=== PATIENT | male | born 1950 | race Caucasian/White ===

== ENCOUNTER 2017-05-26 09:43 | Emergency (ER) | payer MEDICARE, OTHER ==
[2017-05-26] MEDS ORDERED: CLINDAMYCIN 900 MG/50 ML 50 ML IV ONE ×2 (10:05→10:24)
--- NOTE | 2017-05-26 10:07 | ED Physician Documentation ---
PD HPI ANIMAL BITE - Stated complaint Stated Complaint: R WRIST SWELLING - Chief complaint Chief Complaint: Wound - History obtained from History obtained from: Patient - History of Present Illness Location of injury(ies): RUE Details of the event: Cat Timing - onset: How many days ago (2) Associated symptoms: Swelling, Discolored Recently seen: Clinic (Yesterday.) - Treatment [employer]IL [employer] Treatment prior to arrival: Augmentin. - Additional information Additional information: The patient is a 66-year-old male who presents with redness and swelling of his right forearm. 2 days ago a stray cat was in his house and when he was trying to remove the cat it scratched him in the forearm. He was seen by his primary physician yesterday and was prescribed Augmentin. He presents now because of increased swelling and redness, with lymphangitic streaking. He denies fever. He is uncertain when his last tetanus booster was administered. He is right- hand dominant. Review of Systems Constitutional: denies: Fever, Sweats Nose: denies: Congestion Throat: denies: Sore throat Cardiac: denies: Chest pain / pressure Respiratory: denies: Dyspnea, Cough GI: denies: Abdominal Pain, Nausea, Vomiting : denies: Dysuria Skin: reports: Bite / sting. denies: Rash Musculoskeletal: reports: Extremity pain (RUE) Neurologic: denies: Focal weakness, Numbness, Headache PD PAST MEDICAL HISTORY - Present Medications Home Medications: Ambulatory Orders Medication Instructions Recorded Confirmed Amox/Clav 875/125 [Augmentin 1 tab PO BID 05/26/17 05/26/17 875/125] - Allergies Allergies/Adverse Reactions: Allergies Allergy/AdvReac Type Severity Reaction Status Date / Time Sulfa (Sulfonamide Allergy Unknown Verified 05/26/17 09:55 Antibiotics) PD ED PE NORMAL - Vitals Vital signs reviewed: Yes (hypertensive) - General General: Alert and oriented X 3, Well developed/nourished - HEENT HEENT: Atraumatic, Pharynx benign - Neck Neck: No adenopathy, No JVD - Cardiac Cardiac: RRR, No murmur - Respiratory Respiratory: No respiratory distress, Clear bilaterally - Abdomen Abdomen: Soft, Non tender - Back Back: No CVA TTP - Derm Derm: No rash - Extremities Extremities: Other (There is a 2.5 cm laceration on the dorsum of the right distal forearm, consistent with cat scratch. There is erythema and soft tissue swelling over the dorsum of the right hand and distal forearm. There is slight warmth to palpation, and lymphangitic streaking extending just proximal to the elbow. There is no axillary adenopathy detected. Distal neurovascular is intact.) - Neuro Neuro: Alert and oriented X 3, No motor deficit, No sensory deficit Results - Vitals Vitals: Oxygen O2 Source Room air PD MEDICAL DECISION MAKING - ED course Complexity details: re-evaluated patient, considered differential, d/w patient ED course: The patient's presentation is significant for cellulitis of his right forearm caused by cat scratch. There is no evidence of abscess. Treatmen in the emergency department included administration clindamycin 900 mg IV, as well as administration of tetanus booster. I do not think his clinical presentation warrants hospitalization at this time unless his symptoms become worse on oral antibiotics. I discussed with him the importance of continuing Augmentin as previously prescribed by his primary physician, as well as potentially worrisome signs or symptoms that should prompt reevaluation in the emergency department. Departure - Departure Disposition: 01 Home, Self Care Clinical Impression: Cellulitis of right arm Cat scratch of forearm Qualifiers: Encounter type: initial encounter Laterality: right Qualified Code(s): S50.811A - Abrasion of right forearm, initial encounter Condition: Stable Instructions: ED Infec Skin Cellulitis Follow-Up: Maximiliano Knapp MD [Primary Care Provider] - Comments: Keep your right arm elevated above the level of your heart. Take amoxicillin/clavulanic acid as prescribed by your primary physician. You can use Tylenol or ibuprofen if needed for discomfort. Return to the emergency department if you develop increasing redness, swelling, fever with shaking chills, or otherwise worsening symptoms. Discharge Date/Time: 05/26/17 11:49
[2017-05-26] MEDS ORDERED: TETANUS/DIPHTHERIA/PERTUSSIS 0.5 ML SYRINGE IM ONE ×2 (10:09→10:24)
[2017-05-26 11:50] VITALS: BP 147/80
== END 2017-05-26 11:49 | disposition home or self-care (01) ==
LOC: ED 09:43
DX: S50.811A Abrasion of right forearm, initial encounter (principal); L03.113 Cellulitis of right upper limb; W55.03XA Scratched by cat, initial encounter; Y92.019 Unspecified place in single-family (private) house as the place of occurrence of the external cause; Z23 Encounter for immunization
CPT/HCPCS: 90471; 96365; 99283

== ENCOUNTER 2021-04-13 09:07 | Emergency (ER) | payer MEDICARE, OTHER ==
--- NOTE | 2021-04-13 10:22 | XRAY Report ---
PROCEDURE: Hand 3 View RT INDICATIONS: 5th digit PIP dislocation TECHNIQUE: 3 views of the hand(s) acquired. COMPARISON: None. FINDINGS: BONES: No acute, displaced fracture or dislocation. The carpal bones are normally aligned. SOFT TISSUES: No acute abnormality. IMPRESSION: 1.No acute osseous abnormality. Reviewed by: Farhan Arcos MD on 04/13/2021 10:21 AM PDT Approved by: Farhan Arcos MD on 04/13/2021 10:21 AM PDT Station ID: [id number]
--- NOTE | 2021-04-13 10:23 | ED Physician Documentation ---
PD HPI UPPER EXT INJURY - Stated complaint Stated Complaint: RT PINKY INJURY - Chief complaint Chief Complaint: Ext Problem - History obtained from History obtained from: Patient - History of Present Illness Location: Right, Finger (5th) Type of injury: Fall Where injury occurred: Home Timing - onset: Today Timing - duration: Hours Timing - details: Abrupt onset, Still present Improved by: Rest, Immobilization Worsened by: Moving, Palpating Associated symptoms: No: Weakness, Numbness, Tingling, Swelling Contributing factors: No: Anticoagulated Similar symptoms before: Has not had sx before Recently seen: Not recently seen - Additonal information Additional information: Previously well 70-year-old male was had a fall in his home and when he did he fell onto his outstretched right hand and twisted his right 5th finger laterally. He states that the finger was pointing off. He states this was at the PIP joint. He has no significant pain associated now has some mild swelling. Review of Systems Constitutional: denies: Fever Ears: denies: Ear pain Throat: denies: Sore throat Respiratory: denies: Cough PD PAST MEDICAL HISTORY - Present Medications Home Medications: Ambulatory Orders Medication Instructions Recorded Confirmed Amox/Clav 875/125 [Augmentin 1 tab PO BID 05/26/17 05/26/17 875/125] - Allergies Allergies/Adverse Reactions: Allergies Allergy/AdvReac Type Severity Reaction Status Date / Time Sulfa (Sulfonamide Allergy Unknown Verified 04/13/21 09:14 Antibiotics) PD ED PE NORMAL - Vitals Vital signs reviewed: Yes (hypertensive) - General General: Alert and oriented X 3, No acute distress, Well developed/nourished - HEENT HEENT: Atraumatic, PERRL, EOMI - Respiratory Respiratory: No respiratory distress - Derm Derm: Normal color, Warm and dry, No rash - Extremities Extremities: No deformity, No edema, Other (lateral subluxation of the 5th digit with pain over the PIP joint(R). Distal n/v intact. all joints with normal ROM. ) - Neuro Neuro: dry house wheeler 2-12 intact, No motor deficit, No sensory deficit, Normal speech Eye Opening: Spontaneous Motor: Obeys Commands Verbal: Oriented GCS Score: 15 - Psych Psych: Normal mood, Normal affect Results - Vitals Vitals: Vital Signs - 24 hr 04/13/21 09:12 Temperature 36.2 C L Heart Rate 69 Respiratory 18 Rate Blood Pressure 172/117 H O2 Saturation 93 Oxygen O2 Source Room air - Rads (name of study) fingers Radiology: Prelim report reviewed (Impression: 1. No acute osseous abnormality.), EMP read indepedently, See rad report Procedures - Splint (location) right hand Splint applied by: Tech Type of splint: Fiberglass, Ulnar gutter Other: Patient tolerated well, No complications, Neurovascular intact, Good alignment PD MEDICAL DECISION MAKING - ED course Complexity details: reviewed results, re-evaluated patient, considered differential, d/w patient ED course: 70-year-old male historically has dislocated his right 5th digit at the PIP joint it is spontaneously been reduced and there is no evidence of fracture on plain film. He is placed into an ulnar gutter splint and referred back to his primary. Departure - Departure Disposition: 01 Home, Self Care Clinical Impression: Dislocation of PIP joint of finger Qualifiers: Encounter type: initial encounter Qualified Code(s): S63.289A - Dislocation of proximal interphalangeal joint of unspecified finger, initial encounter Condition: Stable Instructions: ED Dislocation Finger Redu Follow-Up: Maximiliano Knapp MD [Primary Care Provider] -
[2021-04-13 10:40] VITALS: BP 168/86
== END 2021-04-13 10:41 | disposition home or self-care (01) ==
LOC: ED 09:07
DX: S63.286A Dislocation of proximal interphalangeal joint of right little finger, initial encounter (principal); W19.XXXA Unspecified fall, initial encounter; Y92.009 Unspecified place in unspecified non-institutional (private) residence as the place of occurrence of the external cause
CPT/HCPCS: 99282

== ENCOUNTER 2021-06-24 15:14 | Inpatient (IN) | payer MEDICARE, OTHER ==
--- NOTE | 2021-06-24 15:32 | ED Physician Documentation ---
PD HPI LOWER EXT INJURY - Stated complaint Stated Complaint: GLF - Chief complaint Chief Complaint: Trauma Ext - History obtained from History obtained from: Patient, EMS - History of Present Illness PD HPI LOW EXT INJURY LOCATION: Right, Hip - Additional information Additional information: 70-year-old gentleman with history of hypertension slipped on the ice while he was getting [employer] takeout And landed on his right hip where he has pain but declines pain medication. No other injuries. He is not able to walk or bear weight. Review of Systems Ten Systems: 10 systems reviewed and negative Constitutional: reports: Reviewed and negative Cardiac: reports: Reviewed and negative Respiratory: reports: Reviewed and negative PD PAST MEDICAL HISTORY - Present Medications Home Medications: Ambulatory Orders Medication Instructions Recorded Confirmed Amox/Clav 875/125 [Augmentin 1 tab PO BID 05/26/17 05/26/17 875/125] - Allergies Allergies/Adverse Reactions: Allergies Allergy/AdvReac Type Severity Reaction Status Date / Time Sulfa (Sulfonamide Allergy Unknown Verified 06/24/21 15:22 Antibiotics) PD ED PE NORMAL - Vitals Vital signs reviewed: Yes - General General: Alert and oriented X 3, No acute distress - HEENT HEENT: PERRL, EOMI - Neck Neck: Supple, no meningeal sign, No bony TTP - Cardiac Cardiac: RRR, No murmur - Respiratory Respiratory: No respiratory distress, Clear bilaterally - Abdomen Abdomen: Normal bowel sounds, Soft, Non tender - Back Back: No CVA TTP, No spinal TTP - Derm Derm: Normal color, Warm and dry - Extremities Extremities: Other (The right leg is shortened and externally rotated and he has severe pain with internal or external rotation of the hip.) - Neuro Neuro: Alert and oriented X 3, Normal speech Results - Vitals Vitals: Vital Signs - 24 hr 06/24/21 15:22 Temperature 36.7 C Heart Rate 58 L Respiratory 18 Rate Blood Pressure 174/88 H O2 Saturation 92 Oxygen O2 Source Room air - Labs Labs: Laboratory Tests 06/24/21 06/24/21 06/24/21 15:39 15:39 15:39 WBC 8.0 RBC 5.09 Hgb 15.5 Hct 45.6 MCV 89.6 MCH 30.5 MCHC 34.0 RDW 12.5 Plt Count 250 MPV 11.4 Neut # (Auto) 5.8 Lymph # (Auto) 1.1 L Geary # (Auto) 0.8 Eos # (Auto) 0.3 Baso # (Auto) 0.0 Absolute Nucleated RBC 0.00 Nucleated RBC % 0.0 PT 12.4 INR 1.1 Sodium 141 Potassium 3.7 Chloride 105 Carbon Dioxide 25 Anion Gap 11.0 BUN 16 Creatinine 1.1 Estimated GFR (MDRD) 66 L Glucose 130 H Calcium 9.4 PD MEDICAL DECISION MAKING - ED course ED course: This 70-year-old gentleman had a fall onto his right hip with an isolated right hip injury and is found to have a right-sided intertrochanteric fracture. I discussed the case by phone with Dr. Ace who is not on-call, but graciously agrees to see the patient and likely fix him tomorrow. Spoke with Dr. Perez for admission at 4:20 PM. Departure - Departure Disposition: 66 [facility] DC/Xfer Clinical Impression: Fracture, intertrochanteric, right femur Condition: Fair
[2021-06-24 15:48] LABS: BASOPHILS % (AUTO) 0.1 %; EOSINOPHILS # (AUTO) 0.3 10^3/uL (0.0-0.7); EOSINOPHILS % (AUTO) 3.1 %; HCT - HEMATOCRIT 45.6 % (42.0-52.0); HGB - HEMOGLOBIN 15.5 g/dL (14.0-18.0); LYMPHOCYTES # (AUTO) 1.1 10^3/uL (1.5-3.5); LYMPHOCYTES % (AUTO) 14.2 %; MEAN CORPUSCULAR HEMOGLOBIN 30.5 pg (27.0-31.0); MEAN CORPUSCULAR VOLUME 89.6 fL (80.0-94.0); MEAN PLATELET VOLUME 11.4 fL (7.4-11.4); MONOCYTES # (AUTO) 0.8 10^3/uL (0.0-1.0); MONOCYTES % (AUTO) 9.5 %; NEUTROPHILS # (AUTO) 5.8 10^3/uL (1.5-6.6); NEUTROPHILS % (AUTO) 72.7 %; PLT - PLATELET COUNT 250 10^3/uL (130-450); RED BLOOD COUNT 5.09 10^6/uL (4.70-6.10); RED CELL DISTRIBUTION WIDTH 12.5 % (12.0-15.0)
[2021-06-24 15:53] LABS: INR 1.1 (0.8-1.2); PT - PROTHROMBIN TIME 12.4 secs (9.9-12.6)
[2021-06-24 15:58] LABS: CALCIUM 9.4 mg/dL (8.5-10.3); CREATININE 1.1 mg/dL (0.6-1.2); POTASSIUM 3.7 mmol/L (3.5-5.0)
--- NOTE | 2021-06-24 16:10 | XRAY Report ---
PROCEDURE: Hip w/Pelvis 2-3V RT INDICATIONS: hip inj TECHNIQUE: AP pelvis with lateral view(s) of the right hip(s). COMPARISON: None. FINDINGS: Bones: There is a comminuted right intertrochanteric hip fracture. Both hips have mild degenerative c hanges. Pelvic ring appears intact. No suspicious bony lesions. Soft tissues: The visualized bowel gas pattern is normal. No suspicious soft tissue calcifications. IMPRESSION: Comminuted right intertrochanteric hip fracture. Reviewed by: West Lowe on 06/24/2021 4:09 PM PST Approved by: West Lowe on 06/24/2021 4:09 PM PST Station ID: [id number]
[2021-06-24] MEDS ORDERED: ACETAMINOPHEN 325 MG TABLET PO PRN (16:21)
[2021-06-24] MEDS ORDERED: SODIUM CHLORIDE FLUSH 0.9% 10 ML SYRINGE IVP PRN (16:21)
[2021-06-24] MEDS ORDERED: oxyCODONE 5 MG TABLET PO PRN (16:21)
[2021-06-24] MEDS ORDERED: ONDANSETRON 4 MG/2 ML VIAL IVP PRN (16:21)
--- NOTE | 2021-06-24 16:25 | XRAY Report ---
PROCEDURE: Chest 1 View X-Ray INDICATIONS: hip frx, preop TECHNIQUE: One view of the chest was acquired. COMPARISON: None FINDINGS: Surgical changes and devices: None. Lungs and pleura: No pleural effusions or pneumothorax. Lungs are clear. Mediastinum: Mediastinal contours appear normal. Heart size is normal. Bones and chest wall: No suspicious bony lesions. Overlying soft tissues appear unremarkable. IMPRESSION: Chest without acute cardiopulmonary abnormalities. Reviewed by: Edwin Huang MD on 06/24/2021 4:24 PM [facility] Approved by: Edwin Huang MD on 06/24/2021 4:24 PM [facility] Station ID: [id number]
[2021-06-24] MEDS ORDERED: hydrALAZINE INJ 20 MG/ML VIAL IVP PRN (16:28)
--- NOTE | 2021-06-24 16:33 | HISTORY & PHYSICAL EXAMINATION ---
Chief Complaint - Chief Complaint Chief Complaint: fall and right hip pain History of Present Illness - Admitted From Admitted From:: medical floor - History Obtained [facility] History obtained from: pt Exam Limitations: no - History of Present Illness HPI Comment/Other: This is a 70-year-old gentleman with a medical history of hypertension who complain of right hip pain after he fall [place]. he report he slipped on the ice while he went to a local [employer] restaurant. pt denies loss of consciousness or other injuries. he report landed on his right hip then he became severe pain at right hip. He report he can not standup or bear any weight after the fall. But Pt declines to have pain medication in ER. Xray show pt has comminuted right intertrochanteic hip fracture. CXR was unremarkable for acute process. pt denies cardiac history. he denies chest pain, shortness of breath. lab test show unremarkable. in ER, Patient is afebrile and slightly elevated blood pressure otherwise pt is hemodynamic stable. ER already consulted orthopedic surgeon. Discussed care goal with the patient, pt hope to have full code. History - Family & Social History Family History: Mother: , Father: Family History Comment/Other: Patient report his father from stroke at age 91. His mother from rare blood disease when she was age 23. Social History Notes: Patient reported she quit cigarette smoking at 2001, she report she drinks alcohol almost every night but he denies any alcohol withdrawal Meds/Allgy - Home Medications Home Medications: Ambulatory Orders Medication Instructions Recorded Confirmed Amox/Clav 875/125 [Augmentin 1 tab PO BID 05/26/17 05/26/17 875/125] - Allergies Allergies/Adverse Reactions: Allergies Allergy/AdvReac Type Severity Reaction Status Date / Time Sulfa (Sulfonamide Allergy Unknown Verified 06/24/21 15:22 Antibiotics) Review of Systems - Constitutional Constitutional: denies: Fever, Chills - Cardiovascular Cariovascular: denies: Palpitations, Chest pain, Syncope, Exertional dyspnea, Decr. exercise tolerance - Respiratory Respiratory: denies: Cough, SOB at rest, SOB with exertion - Gastrointestinal Gastrointestinal: denies: Abdominal pain, Nausea, Vomiting - Genitourinary Genitourinary: denies: Dysuria - Musculoskeletal Musculoskeletal: denies: Muscle pain, Joint swelling - Neurological Neurological: denies: General weakness, Focal weakness, Headache, Dizziness, Numbness, Abnormal gait, Seizures, Incoordination, Slurred speech Exam - Vital Signs Vital Signs: Vital Signs x48h Temp Pulse Resp BP Pulse Ox 06/24/21 15:22 36.7 C 58 L 18 174/88 H 92 - Physical Exam General Appearance: positive: No acute distress, Alert. negative: Lethargic Eyes Bilateral: positive: Normal inspection, No lid inflammation ENT: positive: ENT inspection nml, No signs of dehydration. negative: Purulent nasal drainage Neck: positive: Nml inspection, Trachea midline. negative: Tracheal deviation Respiratory: positive: Chest non-tender, No respiratory distress, Breath sounds nml Cardiovascular: positive: Regular rate & rhythm. negative: Tachycardia, Bradycardia, Systolic murmur Peripheral Pulses: positive: 2+ Abdomen: positive: Non-tender, Nml bowel sounds, No distention. negative: Tenderness Back: positive: Nml inspection Skin: positive: Color nml, Warm, Dry. negative: Cyanosis Extremities: positive: Non-tender, Nml appearance Neurologic/Psychiatric: positive: Oriented x3, Sensation nml, Mood/affect nml. negative: Weakness, Sensory loss, Facial droop, Slurred/abnml speech, Depressed mood/affect Conclusion/Plan - Problem List (1) Fracture, intertrochanteric, right femur Conclusion/Plan: Patient had a mechanical fall, patient denies loss conscious, x-ray show patient had a right hip fracture. Orthopedic surgeon was consulted, plan to have surgery on tomorrow. NPO after midnight, pain control. (2) Encounter for preoperative assessment for noncoronary cardiac surgery Conclusion/Plan: Patient denies any cardiac history, patient's lung sound is clear, and heart sounds without Murmur and Regular rhythm. Revised cardiac risk index Reji criteria estimated risk of adverse outcome with non-cardiac surgery reveal low risk. Estimated rate of myocardial infarction, pulmonary edema, ventricular fibrillation, cardiac arrest, or complete heart block show 0.4%. (3) HTN (hypertension) Conclusion/Plan: Amlodipine in his home meds we will resume, we will add hydralazine as needed - Lab Results Fish Bones: 06/24/21 15:39 06/24/21 15:39 Core Measures - Anticipated LOS I expect patient to be DC'd or transferred within 96 hours.: Yes - DVT/VTE - Prophylaxis VTE/DVT Device ordered at admit?: Yes VTE/DVT Prophylaxis med ordered at admit?: Yes
--- NOTE | 2021-06-24 18:05 | CONSULTATION NOTE ---
Referring Provider Name of Referring Provider:: Dr. Gabriel, Scottie An, HOME VISITS NURSE Consult Date: 06/24/21 Chief Complaint - Chief Complaint Chief Complaint: pain right uppper thigh and hip History of Present Illness - Admitted From Admitted From:: Emergency department - History Obtained From Records Reviewed: Yes History obtained from: Patient Exam Limitations: None - History of Present Illness HPI Comment/Other: This is a relatively healthy 70-year-old gentleman, retired from the [employer], who took a fall this afternoon in [place] in the parking lot going to the [employer]. He slipped on the ice, fell onto right hip and had immediate pain to the right hip. He was unable to walk after the fall. He denies previous problems with his right hip. He is a community ambulator. He denies chest pain, shortness of breath, dizziness, syncope or loss of consciousness associated with the fall. He is relatively comfortable laying in bed in the emergency room. He denies any other areas of pain other than the right hip and upper thigh. His general health has been good. He does have a history of hypertension, GERD and a history of cholecystectomy in the past. He is retired, lives in [place] and is a non-smoker. He denies history of heart attack, stroke, cancer, kidney disease, liver disease or pulmonary embolus. His sustained a similar fracture to her right hip approximately 1 month ago and is receiving some home health care since her surgery and recovery. History - Past Medical History Cardiovascular: reports: Hypertension GI: reports: GERD - Family & Social History Family History: Mother: , Father: Family History Comment/Other: Patient report his father from stroke at age 91. His mother from rare blood disease when she was age 23. Social History Notes: Patient reported she quit cigarette smoking at 2001, she report she drinks alcohol almost every night but he denies any alcohol withdrawal Meds/Allgy - Home Medications Home Medications: Ambulatory Orders Medication Instructions Recorded Confirmed Amox/Clav 875/125 [Augmentin 1 tab PO BID 05/26/17 05/26/17 875/125] - Allergies Allergies/Adverse Reactions: Allergies Allergy/AdvReac Type Severity Reaction Status Date / Time Sulfa (Sulfonamide Allergy Unknown Verified 06/24/21 15:22 Antibiotics) Exam - Vital Signs Vital Signs: Vital Signs x48h Temp Pulse Resp BP Pulse Ox 06/24/21 15:22 36.7 C 58 L 18 174/88 H 92 - Physical Exam General Appearance: positive: No acute distress Respiratory: positive: Chest non-tender, No respiratory distress Cardiovascular: positive: Regular rate & rhythm Peripheral Pulses: positive: 2+ Abdomen: positive: Non-tender Skin: positive: Color nml, Warm, Dry Neurologic/Psychiatric: positive: Oriented x3, Motor nml, Sensation nml, Mood/affect nml Comments/Other: Extremities: All extremities are normal with exception of the right lower extremity. The right lower extremity is shortened and externally rotated, painful movement at the hip with passive motion, limited motion right hip, skin intact, no sign of hematoma or abrasion over hip area. Neurovascular is intact to right leg. Conclusion and Plan - Lab Results Laboratory Results 06/24/21 15:39: Sodium 141, Potassium 3.7, Chloride 105, Carbon Dioxide 25, Anion Gap 11.0, BUN 16, Creatinine 1.1, Estimated GFR (MDRD) 66 L, Glucose 130 H, Calcium 9.4 06/24/21 15:39: PT 12.4, INR 1.1 06/24/21 15:39: WBC 8.0, RBC 5.09, Hgb 15.5, Hct 45.6, MCV 89.6, MCH 30.5, MCHC 34.0, RDW 12.5, Plt Count 250, MPV 11.4, Neut # (Auto) 5.8, Lymph # (Auto) 1.1 L, [place] # (Auto) 0.8, Eos # (Auto) 0.3, Baso # (Auto) 0.0, Absolute Nucleated RBC 0.00, Nucleated RBC % 0.0 06/24/21 15:39: Blood Type O POSITIVE, Antibody Screen NEGATIVE - Diagnostic Imaging Results Diagnostic Imaging Results: negative: Read independently (Displaced, unstable intertrochanteric fracture right hip with shortening and rotation.) - Diagnosis Diagnosis: Displaced intertrochanteric fracture right hip - Consultation Note Consultation Note: I have discussed both nonoperative and operative treatment with regard to right hip. The pros and cons were discussed. No matter how the fracture is treated there is potential morbidity and mortality. Generally, in relatively healthy patients, surgical treatment is generally advocated and accepted. I have discussed the risk, goals and likelihood of achieving goals, alternatives to surgery and their consequences, morbidity and mortality. The plan is to do an open reduction internal fixation of the right hip, tentatively, tomorrow. He is receiving preoperative medical evaluation. He is in agreement to the surgery and has signed an informed consent. - Plan Plan: Open reduction internal fixation intertrochanteric fracture right hip using cephalomedullary nail and hip screw to right femur. The patient has signed an informed consent agreeing to the surgery. Both general and procedure specific risk were discussed.
[2021-06-24 18:11] LABS: B. PARAPERTUSSIS- RESP PCR PAN NOT DETECTED; B. PERTUSSIS- RESP PCR PANEL NOT DETECTED; C. PNEUMONIAE- RESP PCR PANEL NOT DETECTED; CORONAVIRUS 229E-RESP PCR NOT DETECTED; CORONAVIRUS HKU1-RESP PCR NOT DETECTED; CORONAVIRUS NL63-RESP PCR NOT DETECTED; CORONAVIRUS OC43-RESP PCR NOT DETECTED; HUMAN METAPNEUMOVIRUS NOT DETECTED; INFLUENZA A- RESP PCR PANEL NOT DETECTED; INFLUENZA B - RESP PCR PANEL NOT DETECTED; M. PNEUMONIAE- RESP PCR PANEL NOT DETECTED; PARAINFLUENZA VIRUS 1 NOT DETECTED; PARAINFLUENZA VIRUS 2 NOT DETECTED; PARAINFLUENZA VIRUS 3 NOT DETECTED; PARAINFLUENZA VIRUS 4 NOT DETECTED; RHINOVIRUS/ENTEROVIRUS NOT DETECTED; RSV- RESP PCR PANEL NOT DETECTED; SARS-CoV-2 -RESP PCR PANEL NOT DETECTED
[2021-06-24] MEDS: MORPHINE 2 MG/ML CARPUJECT IVP PRN (18:28)
[2021-06-24] MEDS: amLODIPine 5 MG TABLET PO SCH (19:00)
[2021-06-24] MEDS: SODIUM CHLORIDE FLUSH 0.9% 10 ML SYRINGE IVP SCH (19:01)
[2021-06-24] MEDS: SODIUM CHLORIDE 0.9% 1,000 ML IV SCH (23:58)
[2021-06-25] MEDS: SODIUM CHLORIDE FLUSH 0.9% 10 ML SYRINGE IVP SCH ×2 (02:57→10:59)
[2021-06-25] MEDS: MORPHINE 2 MG/ML CARPUJECT IVP PRN (04:02)
[2021-06-25 05:47] LABS: BASOPHILS % (AUTO) 0.1 %; EOSINOPHILS # (AUTO) 0.1 10^3/uL (0.0-0.7); EOSINOPHILS % (AUTO) 0.6 %; HCT - HEMATOCRIT 40.5 % (42.0-52.0); HGB - HEMOGLOBIN 13.5 g/dL (14.0-18.0); LYMPHOCYTES # (AUTO) 1.2 10^3/uL (1.5-3.5); MEAN CORPUSCULAR HEMOGLOBIN 29.9 pg (27.0-31.0); MEAN CORPUSCULAR HGB CONC 33.3 g/dL (32.0-36.0); MEAN CORPUSCULAR VOLUME 89.6 fL (80.0-94.0); MEAN PLATELET VOLUME 11.6 fL (7.4-11.4); MONOCYTES # (AUTO) 1.1 10^3/uL (0.0-1.0); MONOCYTES % (AUTO) 12.9 %; NEUTROPHILS # (AUTO) 6.2 10^3/uL (1.5-6.6); PLT - PLATELET COUNT 218 10^3/uL (130-450); RED BLOOD COUNT 4.52 10^6/uL (4.70-6.10); RED CELL DISTRIBUTION WIDTH 12.7 % (12.0-15.0); WHITE BLOOD COUNT 8.6 x10^3/uL (4.8-10.8)
[2021-06-25 05:49] LABS: CALCIUM 8.4 mg/dL (8.5-10.3); POTASSIUM 3.8 mmol/L (3.5-5.0)
[2021-06-25] MEDS ORDERED: PANTOPRAZOLE 40 MG TABLET PO SCH (07:00)
--- NOTE | 2021-06-25 08:56 | CT Report ---
PROCEDURE: Head W/O Stroke Protocol INDICATIONS: right side weakness, aphasia TECHNIQUE: Noncontrast 4.5 mm thick angled axial sections acquired from the foramen magnum to the vertex, with c oronal reformats. For radiation dose reduction, the following was used: automated exposure control, adjustment of mA and/or kV according to patient size. COMPARISON: FINDINGS: BRAIN PARENCHYMA: Normal parenchymal density. No acute cortical based (large territory) infarction, i ntracranial hemorrhage, mass or mass effect, or abnormal fluid collection. Dense appearance of the le ft MCA. Gliosis in the left anterior limb of the internal capsule, compatible remote infarction. White matter hypoattenuation, compatible with the sequelae of microvascular ischemia. The density in the larger dural venous sinuses is grossly normal. VENTRICLES: Normal in size, shape, and position. BONES/SINUSES: The skull base and calvarium demonstrate no acute abnormality. The paranasal sinuses a nd mastoid air cells are well aerated. IMPRESSION: 1.No acute intracranial hemorrhage. 2.Dense left MCA, concerning for slow flow or thrombus. Findings were discussed with the hospitalist, Dr. Perez at the time of dictation. Reviewed by: Farhan Arcos MD on 06/25/2021 8:55 AM PST Approved by: Farhan Arcos MD on 06/25/2021 8:55 AM PST Station ID: [id number]
[2021-06-25] MEDS ORDERED: IOPAMIDOL-300 50 ML VIAL ONE (09:29)
--- NOTE | 2021-06-25 09:54 | PROVIDER PROGRESS NOTE ---
Hospitalist Cross-cover Note - Cross-Cover Note Cross-Cover Note: At 8:20am, nurse called me pt present stroke. I immediately went to assess pt. pt is aphasia, right facial droop, right upper extremity flaccid paralysis. pt had right hip fracture on yesterday, so I did not do assess on pt's right lower extremity. pt also present weakness on left lower extremity. I immediately ordered CT of head with stroke protocol. At same time, I am with nurse reservations sales supervisor to set for video camera and prepare for tele stroke call. Dr. Mariya Brooks and I both called pt's and leave message but we did not receive call back yet. CT of head reveals no acute Intracranial hemorrhage, dense left MCA, Concerning for slow flow or thrombus. tele stroke connected with [facility] [place] neurologist Dr. Zamudio. I reported what I found as above and time onset, vital signs; Pt has hx of HTN, GERD and pt had right hip fracture from Mechanical fall on yesterday. Dr. Zamudio did assess pt by tele stroke and advised no TPA, and order CTA of head and neck, pt need to be transferred to high level care at [facility] [place] for mechanical thrombectomy. I ordered CTA of head and neck, and requested air fly as soon as possible to be transferred to [facility] [place] for high level of care. Initially pt was planned to be transferred by ambulance because of bad weather, but finally pt was air fly by to [facility] [place] around 10:40-10:50am. vital sign at hospital: T37.2, HR 65, BP194/77, 94% O2 sat on room air. pt has no respiratory distress.
[2021-06-25] MEDS ORDERED: iohexoL-300 100 ML VIAL IVP ONE (09:56)
--- NOTE | 2021-06-25 10:14 | CT Report ---
PROCEDURE: ANGIO HEAD W/WO INDICATIONS: stroke CONTRAST: IV CONTRAST: Optiray 320 ml: 80 PO CONTRAST: *NO PO CONTRAST TECHNIQUE: Precontrast 4.5 mm thick angled axial sections acquired from the foramen magnum to the vertex. Afte r the administration of intravenous contrast, 1 mm thick sections acquired through the [place] of [place] is. Postcontrast 4.5 mm thick sections then re-acquired from the foramen magnum to the vertex. 3-di mensional umtpzvg-cglwbrgix-hahcadwwyr (MIP) and/or volume rendering reformats were acquired of the c entral intracranial vasculature. For radiation dose reduction, the following was used: automated ex posure control, adjustment of mA and/or kV according to patient size. COMPARISON: CT head without contrast, 06/25/2021. FINDINGS: Image quality: Excellent. Anterior circulation: The distal left internal carotid artery is occluded. There is also occlusion of the left middle cerebral artery initiating "dense MCA sign" and poor contrast enhancement secondary to thrombosis. The flow within the paired anterior cerebral arteries is normal and symmetric. The f low within the right middle cerebral artery is normal. The anterior communicating artery is seen. S mall left A1 segment with collateral flow from the contralateral side. No aneurysms. Posterior circulation: Codominant vertebral arteries. Visualized portions of the vertebral arteries d emonstrate normal caliber, and join to form a normal appearing basilar artery. Flow within the poste rior cerebral arteries is normal and symmetric. The left posterior communicating artery is not seen, probably congenitally hypoplastic or aplastic. No aneurysms. CSF spaces: Ventricles are normal in size and shape. Basal cisterns are patent. No extra-axial flu id collections. Brain: There is subtle loss of menon-white interface in the left hemisphere compared with cerebral isc hemia. No midline shift. No intracranial bleeds or masses. Menon-white matter interface appears inta ct. Skull and face: Calvarium and facial bones appear intact, without suspicious lesions. Sinuses: Visualized sinuses and mastoids are clear. IMPRESSION: 1. 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 2. Subtle loss of menon-white interface in the left hemisphere consistent with cerebral ischemia. 3. Patent posterior circulation. 4. The left posterior communicating artery is not visualized, either congenitally hypoplastic or apla stic. Reviewed by: Porter Pruitt MD on 06/25/2021 10:13 AM PST Approved by: Porter Pruitt MD on 06/25/2021 10:13 AM PST Station ID: [id number]
[2021-06-25 10:26] VITALS: BP 194/77
--- NOTE | 2021-06-25 10:33 | CT Report ---
PROCEDURE: ANGIO NECK W INDICATIONS: stroke CONTRAST: IV CONTRAST: Optiray 320 ml: 80 PO CONTRAST: *NO PO CONTRAST TECHNIQUE: After the administration of intravenous contrast, 1.5 mm axial sections acquired from the aortic arch to the [place] of [place]. Coronal 3-D maximum intensity projection (MIP) and/or volume rendering ref ormats were then performed. For radiation dose reduction, the following was used: automated exposur e control, adjustment of mA and/or kV according to patient size. COMPARISON: CT head without, 06/25/2021. CTA head, 06/25/2021. FINDINGS: Image quality: Excellent. Carotid system: The great vessels demonstrate a conventional anatomy as they arise from the aortic a rch. The origins of the common carotid arteries appear patent. The common carotid arteries demonstr ate normal calibers and courses. Calcified plaques at the carotid bifurcations bilaterally. There is short segment of critical stenosis or occlusion (>99%) at origin of the left internal carotid artery . More distally, the left internal carotid artery is occluded or thrombosed at the level of C2 and a john. There is moderate stenosis of the proximal right internal carotid artery (~69%) just above the bifurcation. Posterior circulation: The origins of the vertebral arteries appear patent. The more superior porti ons of the vertebral arteries demonstrate normal course and caliber. They join to form a normal appe aring basilar artery. Soft tissues: Visualized neck soft tissues demonstrate no suspicious abnormalities. The thyroid is normal in size and there are no incidental findings. Bones: No suspicious bony lesions. Visualized cervical spine appears normally aligned. IMPRESSION: 1. Critical stenosis or occlusion at the origin of the left internal carotid artery (>99%). Occlusion or thrombosis of the distal left internal carotid artery above the level of C2. 2. Moderate stenosis of the right internal carotid artery (approximately 60%) at its origin. 3. Patent vertebral arteries bilaterally. The message was left in the hospitalist's voice mail for her to call to discuss the report. The estimate of stenosis included in the report of the imaging study was calculated using the NASCET method Reviewed by: Porter Pruitt MD on 06/25/2021 10:32 AM PST Approved by: Porter Pruitt MD on 06/25/2021 10:32 AM PST Station ID: [id number]
[2021-06-25] MEDS: SODIUM CHLORIDE 0.9% 1,000 ML IV SCH (10:59)
[2021-06-25] MEDS: amLODIPine 5 MG TABLET PO SCH (10:59)
--- NOTE | 2021-06-25 11:33 | DISCHARGE SUMMARY ---
"Discharge Summary Admit Date: 06/24/21 Discharge Date: 06/25/21 Discharging Provider: Scottie Jauregui Primary Care Provider: Maximiliano Holden Condition at Discharge: Fair Discharge Facility Name: [facility] - DIAGNOSES Discharge Diagnoses with Status of Each Condition: (1)stroke Patient had acute severe stroke between 4950-7929 on today morning. pt clinic present aphasia, right facial droop, right upper extremity flaccid paralysis, also present weakness on left lower extremity. NIH stroke scale 32. pt immediately had CT of head with stroke protocol, tele stroke evaluation by [facility] neurologist. CT of head reveal no acute Intracranial hemorrhage but with dense left MCA, Concerning for slow flow or thrombus. CTA of head and neck reveal occlusion/thrombosis of the distal left internal carotid artery and left middle cerebral artery, subtle loss of lanier-white interface in the left hemisphere consistent with cerebral ischemia. It was advised no TPA by neur ologist because of acute right hip fracture, pt was air fly to [facility] for high level of care for mechanical thrombectomy Thank Dr. Zamudio neurologist and other teams members to take care of this pt! (2) Fracture, intertrochanteric, right femur Conclusion/Plan: Patient had a mechanical fall, patient denies loss conscious, x-ray show patient had a right hip fracture. Orthopedic surgeon was consulted. pt was planned to have hip repair on today but No surgery can be done at out hospital because pt had acute stroke. This condition was reported to [facility] where pt was transfered for high level of care. (3) HTN (hypertension) Conclusion/Plan: resumed pt's home Amlodipine as pt told me, we add hydralazine as needed. but pt refused to take Amlodipine at our hospital. (4)Obesity pt has 99kg weight and BMI 34. - HPI History of Present Illness: This is a 70-year-old gentleman with a medical history of hypertension who complain of right hip pain after he fall [place]. he report he slipped on the ice while he went to a local [employer] restaurant. pt denies loss of consciousness or other injuries. he report landed on his right hip then he became severe pain at right hip. He report he can not standup or bear any weight after the fall. But Pt declines to have pain medication in ER. Xray show pt has comminuted right intertrochanteic hip fracture. CXR was unremarkable for acute process. pt denies cardiac history. he denies chest pain, shortness of breath. lab test show unremarkable. in ER, Patient is afebrile and slightly elevated blood pressure otherwise pt is hemodynamic stable. ER already consulted orthopedic surgeon. Discussed care goal with the patient, pt hope to have full code. - CONSULTS | PROCEDURES Consultations: Dr. Ace for hip repair, and Dr. Zamudio for tele stroke Procedures: no - HOSPITAL COURSE Hospital Course: pt was admitted for evaluation of his mechanical fall. pt denied loss of Consciousness when he had fall. Xray show pt has comminuted right intertrochanteic hip fracture. orthopedics surgeon consulted for pt and planed to have surgery on today. pt had no focal neurological deficits at the [facility]. Unfortunately pt had stroke at today morning. Pt had tele stroke consult from neurologist of [facility]. pt has no orthopedics surgery at our hospital because of his stroke. pt was transferred by air fly to [facility] for high level of care. The risk for pt's stroke is likely including HTN and Ob esity. - ALLERGIES Allergies/Adverse Reactions: Allergies Allergy/AdvReac Type Severity Reaction Status Date / Time Sulfa (Sulfonamide Allergy Unknown Verified 06/24/21 15:22 Antibiotics) - MEDICATIONS Home Medications: Ambulatory Orders Medication Instructions Recorded Confirmed Amox/Clav 875/125 [Augmentin 1 tab PO BID 05/26/17 05/26/17 875/125] - PHYSICAL EXAM AT DISCHARGE General Appearance: positive: Alert, Lethargic, Other (pt require to have repeated stimulation to arouse) Eyes Bilateral: positive: Other (gaze palsy, cannot be overcome) ENT: positive: Other (left facial paralysis) Neck: positive: Nml inspection, Trachea midline. negative: Tracheal deviation Respiratory: positive: Chest non-tender, No respiratory distress, Breath sounds nml Cardiovascular: positive: Regular rate & rhythm. negative: Tachycardia, Bradycardia, Systolic murmur Peripheral Pulses: positive: 2+ Abdomen: positive: Non-tender, Nml bowel sounds, No distention Back: positive: Nml inspection Skin: positive: Color nml, Warm, Dry. negative: Cyanosis Extremities: positive: Other ( right upper extremity flaccid paralysis, weakness on left lower extremity. ). negative: Pedal edema Neurologic/Psychiatric: positive: Weakness, Sensory loss, Facial droop, Other (aphasia) - LABS Result Diagrams: 06/25/21 05:26 06/25/21 05:26 - DIAGNOSTIC IMAGING Diagnostic Imaging Results: Final report reviewed, Critical result - FOLLOW UP Follow Up: Airflight transfer patient to [facility] for higher level of care - TIME SPENT Time Spent in Discharge (Minutes): 30"
[2021-06-25] MEDS ORDERED: ENOXAPARIN 40 MG/0.4 ML SYRINGE SUBQ SCH (14:00)
== END 2021-06-25 10:50 | disposition short-term general hospital (02) | DRG 535 ==
LOC: EDUNIT# → ED 15:14 → MS2 16:21
PROVIDERS: ADMIT Nurse Practitioner Gerontology; ATTEND Nurse Practitioner Gerontology
DX: S72.141A Displaced intertrochanteric fracture of right femur, initial encounter for closed fracture (principal); I63.9 Cerebral infarction, unspecified; Z20.822 Contact with and (suspected) exposure to COVID-19; R47.01 Aphasia; Y92.9 Unspecified place or not applicable; W00.0XXA Fall on same level due to ice and snow, initial encounter; Y92.481 Parking lot as the place of occurrence of the external cause; R29.810 Facial weakness; G83.21 Monoplegia of upper limb affecting right dominant side; I10 Essential (primary) hypertension; R29.732 NIHSS score 32; E66.9 Obesity, unspecified; Z68.34 Body mass index [BMI] 34.0-34.9, adult; Z87.891 Personal history of nicotine dependence; I66.02 Occlusion and stenosis of left middle cerebral artery; I65.22 Occlusion and stenosis of left carotid artery; K21.9 Gastro-esophageal reflux disease without esophagitis
CPT/HCPCS: 36415; 70450; 70496; 70498; 71045; 73502; 80048; 85025; 85610; 86850; 86900; 86901; 87631; 99283; 99285; Q9967; 0202U

== ENCOUNTER 2021-06-25 09:20 | Outpatient (CLI) | payer MEDICARE, OTHER | END 2021-06-25 09:21 | disposition EMS.NT | LOC: EMS 09:20 | DX: Z03.89 Encounter for observation for other suspected diseases and conditions ruled out (principal) ==